=== PATIENT | male | born 1995 | race Two or more races ===

== ENCOUNTER → 2024-11-17 | Outpatient (BNVA) | payer MEDICAID, SELFPAY | END | disposition home or self-care (01) | PROVIDERS: PCP Nurse Practitioner Family; Referring Provider Nurse Practitioner Family; Visit Provider Nurse Practitioner Family | DX: R10.9 Unspecified abdominal pain (principal) | CPT/HCPCS: 81001; 96372; 99215; J1885 ==

== ENCOUNTER 2025-01-25 21:54 | Emergency (ER) | payer MEDICAID, SELFPAY ==
[2025-01-25 21:54] VITALS: BMI 22.9
--- NOTE | 2025-01-25 22:41 | PC.NURSE ---
no answer in lobby when called for vital signs
--- NOTE | 2025-01-25 22:42 | PC.NURSE ---
no answer in lobby when called for vital signs
--- NOTE | 2025-01-25 23:05 | PC.NURSE ---
no answer in lobby when called for vital signs
== END 2025-01-26 01:43 | disposition left against medical advice (07) ==
PROVIDERS: Emergency Provider Emergency Medicine
DX: Z53.21 Procedure and treatment not carried out due to patient leaving prior to being seen by health care provider (principal)